=== PATIENT | male | born 1995 | race Caucasian/White ===

== ENCOUNTER 2019-09-14 09:16 | Emergency (ER) | payer SELFPAY ==
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
[2019-09-14 09:45] VITALS: BP 138/86
== END 2019-09-14 09:44 | disposition home or self-care (01) ==
LOC: ED 09:16
DX: K08.89 Other specified disorders of teeth and supporting structures (principal); K04.7 Periapical abscess without sinus; K02.9 Dental caries, unspecified; F17.210 Nicotine dependence, cigarettes, uncomplicated
CPT/HCPCS: 99282